=== PATIENT | female | born 1990 | race African-American/Black ===

== ENCOUNTER 2017-05-10 07:23 | Emergency (ER) | payer OTHER ==
[~2017-05-10] VITALS: Ht 172.7 cm; Wt 113.4 kg
--- NOTE | ~2017-05-10 | EKG ---
[place] [address] [email or web address] [address] ELECTROCARDIOGRAM REPORT Name: SHELLY MENJIVAR ASHLEE Room #: [facility]#: [id number] Admission: 05/10/17 Attend Phys: Discharge: Date of : 89 Report #: [id number] THIS REPORT FOR: //name// [facility] ED Test Date: 2017-05-10 Test Time: 07:38:21 Pat Name: SHELLY MENJIVAR Department: Room: Gender: F [employer]: OLIVER : 1990 Requested By: Jabier Eckert Order Number: [id number] MD: Ramo Ling Measurements Intervals [place] Rate: 107 P: 33 [place]: 162 QRS: 26 QRSD: 80 T: 49 QT: 328 QTc: 438 Interpretive Statements Sinus tachycardia ST elev, probable normal early repol pattern No previous ECG available for comparison Electronically Signed On 05-10-2017 8:29:50 CAREER INFORMATION SPECIALIST by Ramo Ling [email or web address] <ELECTRONICALLY SIGNED> By: Ramo Ling MD, [facility] 05/10/17 0829 0738 [id number] Ramo Ling MD, FACC /EPI
[2017-05-10 08:03] LABS: ABSOLUTE NEUTROPHILS 6.8 thou/uL (1.4-8.2); BASOPHILS 1.7 % (0.0-2.0); EOSINOPHILS 1.6 % (0.0-3.0); HEMATOCRIT 37.3 % (37.0-47.0); HEMOGLOBIN 12.3 gm/dL (12.0-15.0); LYMPHOCYTES 21.9 % (24.0-44.0); MCH 26.5 pg (26.0-34.0); MCV 80.2 fL (80.0-100.0); MONOCYTES 5.4 % (1.0-8.0); PLATELET COUNT 311 thou/uL (150-400); POLYS 69.4 % (36.0-66.0); RBC 4.65 mil/uL (4.20-5.00); RDW 15.2 % (10.5-14.5); WBC 9.8 thou/uL (4.0-11.0)
[2017-05-10 08:07] LABS: ANION GAP 5 mmol/L (7-16); BUN 8 mg/dL (7-18); CALCIUM 8.8 mg/dL (8.5-10.1); CHLORIDE 104 mmol/L (98-107); CO2 29 mmol/L (21-32); CREATININE 0.7 mg/dL (0.6-1.0); GLUCOSE 94 mg/dL (74-106); POTASSIUM 3.5 mmol/L (3.5-5.1); SODIUM 138 mmol/L (136-145)
[2017-05-10 08:16] LABS: TROPONIN-I < 0.04 ng/mL (<0.06)
[2017-05-10] MEDS ORDERED: OMEPRAZOLE20 M2 PO (09:16)
== END 2017-05-10 09:45 | disposition home or self-care (01) ==
LOC: ER 07:23
PROVIDERS: Emergency Medicine
DX: R07.89 Other chest pain (principal)

== ENCOUNTER 2021-05-12 22:21 | Emergency (ER) | payer OTHER ==
[~2021-05-12] VITALS: Ht 170.2 cm; Wt 99.8 kg
[~2021-05-12 22:21] MED LIST: OMEPRAZOLE20 M2 PO
[2021-05-12 23:28] LABS: URINE BILIRUBIN NEGATIVE (Negative); URINE BLOOD NEGATIVE (Negative); URINE CLARITY CLEAR; URINE COLOR YELLOW; URINE GLUCOSE-RANDOM* NEGATIVE (Negative); URINE KETONES NEGATIVE (Negative); URINE LEUKOCYTES-REFLEX NEGATIVE (Negative); URINE NITRITE-REFLEX NEGATIVE (Negative); URINE PROTEIN (DIPSTICK) NEGATIVE (Negative); URINE SPECIFIC GRAVITY 1.025 (1.005-1.035)
[2021-05-13 00:48] LABS: RDW 15.7 % (10.5-14.5)
[2021-05-13 00:50] LABS: ABSOLUTE NEUTROPHILS 8.2 thou/uL (1.4-8.2); BASOPHILS 0.5 % (0.0-2.0); EOSINOPHILS 1.4 % (0.0-3.0); HEMOGLOBIN 11.8 gm/dL (12.0-15.0); LYMPHOCYTES 14.9 % (24.0-44.0); MCHC 33.8 g/dL (28.0-37.0); MONOCYTES 4.9 % (1.0-8.0); PLATELET COUNT 260 thou/uL (150-400); POLYS 78.3 % (36.0-66.0); RBC 4.22 mil/uL (4.20-5.00); WBC 10.5 thou/uL (4.0-11.0)
[2021-05-13 04:28] LABS: CALCIUM 8.2 mg/dL (8.5-10.1); CREATININE 0.8 mg/dL (0.6-1.0); POTASSIUM 3.8 mmol/L (3.5-5.1)
[2021-05-13 04:34] LABS: ALBUMIN 3.3 g/dL (3.4-5.0); TOTAL BILIRUBIN 0.8 mg/dL (0.2-1.0); TOTAL PROTEIN 6.9 g/dL (6.4-8.2)
[2021-05-13 04:50] VITALS: BP 179/107
== END 2021-05-13 04:50 | disposition home or self-care (01) ==
LOC: ER 22:21
PROVIDERS: Emergency Medicine; Nurse Practitioner
DX: R10.31 Right lower quadrant pain (principal); R10.32 Left lower quadrant pain; R10.13 Epigastric pain; Z79.899 Other long term (current) drug therapy